=== PATIENT | female | born 1935 | race Caucasian/White ===

== ENCOUNTER → 2017-04-03 | Outpatient (CLI) | payer MEDICARE, OTHER | END | disposition home or self-care (01) | LOC: GMAB 17:58 | PROVIDERS: ATTEND Family Medicine | DX: G30.9 Alzheimer's disease, unspecified (principal) ==

== ENCOUNTER → 2017-07-24 | Outpatient (CLI) | payer MEDICARE, OTHER ==
--- NOTE | 2017-07-25 12:22 | US ---
EXAM DESCRIPTION: Thyroid CLINICAL HISTORY: NONTOXIC GOITER, UNSPECIFIED COMPARISON: Ultrasound carotid duplex and vertebral arteries on this visit. TECHNIQUE: Transcutaneous scannin-dimensional and Doppler modes. FINDINGS: Right lobe dimensions 3.5 x 1.6 x 1.0 cm. Heterogeneous echoes. Slightly hypoechoic nodule with hypoechoic rim in the lower right lobe measuring 0.9 cm transverse and 1.2 x 1.0 cm in the sagittal plane. Nonvascular. More anterior nodule in the right lower lobe measures 1 cm transverse and 1.7 x 1.6 cm in the sagittal plane. Nonvascular. Normal vascularity in the remainder of the lobe. Vascularity No microcalcifications. Contour right lobe smooth. Juxta-thyroid masses/fluid: none. Left lobe dimensions 4.0 x 1.4 x 1.2 cm. Heterogeneous echoes. Hypoechoic nodule in the lower pole measuring 4 x 4 x 3 mm, not vascular. Normal vascularity in the remainder of the lobe. No microcalcifications. Contour left lobe smooth. Juxta-thyroid masses/fluid: none. Isthmus thickness 2.8 mm. Heterogeneous echoes. No cystic, no solid, and no complex lesions. Normal vascularity. Contour smooth. IMPRESSION: 1. Two nodules in the lower aspect of the right lobe and single nodule in the left lobe. These nodules do not meet the imaging criteria for Fine needle aspiration sampling according to RP best practice guidelines, adopted from ACR white paper and Cohen 3-tiered guidelines on incidental thyroid nodules. Please see below.* These recommendations do not apply to patients with increased risk for thyroid cancer or patients with symptomatic thyroid disease. 2. No discrete solid masses, cystic masses, or edema in the surrounding soft tissues. *Further evaluation by thyroid US recommended for: -Solitary incidental thyroid nodule (ITN) with high risk imaging features (locally invasive nodule or suspicious lymph nodes) -Solitary ITN of any size in pediatric patients <= 18 years of age -Solitary ITN >= 1 cm in axial plane in patients between 18 and 35 years of age -Solitary ITN >= 1.5 cm in axial plane in patients >= 35 years of age -Heterogeneous enlarged thyroid gland -ITN avid on FDG-PET or other nuclear medicine (MIBI and octreotide) scans. FNA biopsy is also recommended for PET avid nodules. 2.No f/u imaging is recommended for ITN's not meeting the above criteria. 3.For multiple thyroid nodules, the above recommendations for solitary ITN are to be applied to the largest nodule. 4.No US or f/u recommended for ITN's without high risk features in patients with limited life expectancy or significant co-morbidities, unless clinically warranted. 5.These recommendations do not apply to patients w/ increased risk for thyroid cancer or patients with symptomatic thyroid disease. Recommendations for f/u of Incidental Thyroid Nodules (ITN) found on CT, MR, NM and Extrathyroidal US are based upon the ACR white paper and Cohen 3-tiered system for managing ITN's: [facility] 2015 Dec;12(2): 143-50 Electronically signed by: Klever Turner MD 07/25/2017 12:20 PM CDT
--- NOTE | 2017-07-25 14:53 | US ---
EXAM DESCRIPTION: Carotid Duplex CLINICAL HISTORY: OCCLUSION AND STENOSIS OF BILATERAL CAROTID ARTERIES COMPARISON: Thyroid ultrasound on the same visit. TECHNIQUE: Transcutaneous scanning utilizing 2-dimensional and Doppler modes to evaluate the bilateral carotid systems and vertebral arteries. Percentage of diameter of stenosis or no stenosis recorded will be based upon NASCET criteria. FINDINGS: Peak systolic/end diastolic (CM-Sec) CCA Right 46/12 Left 74/18. ICA Right proximal 48/17, mid 49/21. Left mid 34/11, distal 41/14. Vertebral Right 42/17 Left 22/7. ECA (PS Only) Right 43 left 51. ICA/CCA peak systolic ratio: Right 1.1 Left 0.6 ICA/CCA end diastolic ratio: Right 1.8 Left 0.8 Vertebral arteries: antegrade flow. Comments: Less than 20% stenosis in the mid right common carotid bulb. Minimal spectral broadening bilateral proximal ICAs. IMPRESSION: 1. Doppler evaluation of the bilateral carotid systems and vertebral arteries shows no hemodynamically significant stenoses. 2. No significant amount of plaque seen in the carotid arteries bilaterally. Bilateral vertebral arteries showed antegrade-cephalad flow. Electronically signed by: Klever Turner MD 07/25/2017 2:52 PM CDT
== END ==
LOC: US 15:54
PROVIDERS: ATTEND Family Medicine
DX: I65.23 Occlusion and stenosis of bilateral carotid arteries (principal); E04.9 Nontoxic goiter, unspecified

== ENCOUNTER → 2019-06-25 | Outpatient (CLI) | payer MEDICARE, OTHER ==
--- NOTE | 2019-06-25 14:31 | RAD ---
EXAM DESCRIPTION: Pelvis CLINICAL HISTORY: M25.561/M25.551 COMPARISON: None FINDINGS: Single frontal view the pelvis. The pelvic ring is intact. Mild symmetric bilateral degenerative sacroiliitis is present. 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 No displaced hip fractures. 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 IMPRESSION: No acute radiographic abnormality. Electronically signed by: Arie Hui MD 06/25/2019 2:30 PM CDT
--- NOTE | 2019-06-25 14:33 | RAD ---
EXAM DESCRIPTION: Knee,Left Complete (accession [id number]), Knee,Right Complete (accession [id number]) CLINICAL HISTORY: 83 years, Female, M25.561/M25.551. Pain. COMPARISON: None TECHNIQUE: Four views of the right and left knees were obtained. FINDINGS: Images of the right knee demonstrate diffuse osteopenia which partially limits evaluation. No acute displaced fracture or dislocation is seen. Moderate to severe medial knee compartment joint space narrowing is present. Tricompartmental marginal osteophyte formation. Moderate size right knee joint effusion is seen. Mild atherosclerotic vascular calcifications are present. Images of the left knee demonstrate diffuse osteopenia which partially limits evaluation. No acute displaced fracture or dislocation is seen. Mild to moderate medial knee compartment joint space narrowing is present. Tricompartmental marginal osteophyte formation. No significant knee joint effusion is seen. Mild atherosclerotic vascular calcifications are present. IMPRESSION: 1. No acute displaced fracture or dislocation of the left and right knees. 2. Moderate right and mild left knee osteoarthrosis. 3. Right knee joint effusion. 4. Diffuse osteopenia. Electronically signed by: Caleb Currie DO 06/25/2019 2:31 PM CDT
--- NOTE | 2019-06-25 14:33 | RAD ---
EXAM DESCRIPTION: Knee,Left Complete (accession [id number]), Knee,Right Complete (accession [id number]) CLINICAL HISTORY: 83 years, Female, M25.561/M25.551. Pain. COMPARISON: None TECHNIQUE: Four views of the right and left knees were obtained. FINDINGS: Images of the right knee demonstrate diffuse osteopenia which partially limits evaluation. No acute displaced fracture or dislocation is seen. Moderate to severe medial knee compartment joint space narrowing is present. Tricompartmental marginal osteophyte formation. Moderate size right knee joint effusion is seen. Mild atherosclerotic vascular calcifications are present. Images of the left knee demonstrate diffuse osteopenia which partially limits evaluation. No acute displaced fracture or dislocation is seen. Mild to moderate medial knee compartment joint space narrowing is present. Tricompartmental marginal osteophyte formation. No significant knee joint effusion is seen. Mild atherosclerotic vascular calcifications are present. IMPRESSION: 1. No acute displaced fracture or dislocation of the left and right knees. 2. Moderate right and mild left knee osteoarthrosis. 3. Right knee joint effusion. 4. Diffuse osteopenia. Electronically signed by: Caleb Currie DO 06/25/2019 2:31 PM CDT
== END ==
LOC: RAD 08:36
PROVIDERS: ATTEND Orthopaedic Surgery
DX: M17.0 Bilateral primary osteoarthritis of knee (principal); M85.862 Other specified disorders of bone density and structure, left lower leg; M25.551 Pain in right hip; M25.552 Pain in left hip

== ENCOUNTER → 2019-06-28 | Outpatient (CLI) | payer MEDICARE, OTHER | LOC: RESP 06-25 10:11 | PROVIDERS: ATTEND Physician Assistant | DX: R00.1 Bradycardia, unspecified (principal) ==